=== PATIENT | male | born 1970 | race Caucasian/White ===

== ENCOUNTER 2016-10-05 19:18 | Emergency (ER) | payer MEDICAID ==
[~2016-10-05] VITALS: Ht 185.4 cm; Wt 70.8 kg
[~2016-10-05 19:18] MED LIST: ABILIFY10 MG; AMOXIL500 MG PO; BENZONATATE100 M1 PO; CHEWABLE ASPIRI81 MG PO; CIPRO 500MG TA500 MG PO; DOXY 100100 MG IV; INHALER; KEFLEX 500MG.500 MG PO; LORTAB 5/500 501 TAB PO; MEDROL 4MG. DOSE4 MG PO; MOBIC7.5 MG PO; MOTRIN600 MG PO; NAPROXEN; NAPROXEN SODIU500 MG PO; NITROLINGU0.4 MG/ACT SL; NOMEDS *; NORCO 325 MG-51 TAB PO; PEPCID40 MG PO; PHENERGAN 25MG.25 M1 PO; PREDNISONE 20MG20 MG PO; PREDNISONE50 MG PO; PROPRANOLOL HCL20 MG PO; PROPRANOLOL10 MG PO; SEPTRA DS 800 M1 TAB PO; SKELAXIN 800MG800 MG PO; TESSALON PERLE100 M1 PO; TESSALON PERLE100 MG PO; VIBRAMYCIN 100100 MG PO; VOLTAREN75 MG PO; ZANTAC 150150 MG PO; ZITHROMAX Z PA250 MG PO
[2016-10-05] MEDS ORDERED: PROPRANOLOL HCL20 MG PO (19:25)
--- NOTE | 2016-10-05 19:50 | Emergency Room Report ---
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 HX CHRONIC BACK PAIN. STATES HE HAS HAD 3 BEERS TODAY. 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 N Clinical Suspician of Infection? N Mental Status: 1 - Regular (Normal Baseline) Sepsis Risk:Low Sepsis Risk Have you (or family members/close friends) recently traveled outside the [place]? N If Yes, where/when: Have you had exposure to infectious disease within the past month? N TB? Other? Specify: Source patient, RN notes reviewed, RN/MD Exam Limitations no limitations Comment This is a 46-year-old male patient arriving to the emergency room requesting refills of his medications, her blood pressure and chronic low back pain. She advised that he used to be on Skelaxin years ago, as prescribed by Dr Borja, but he ran out of it. His insurance changed to [place], and his new PCP is dr. Suero, different from his current PCP, Dr Augustin. ALLERGIES Coded Allergies: codeine (05/10/15) Home Medications Reported Medications Propranolol Hcl 20 MG PO BID History Medical History General CAD? No Angina: No PR: No Hypertension? Yes Hyperlipidemia? No CHF? No DVT? No PE? No COPD? No Asthma? No Anemia? No GERD? No Gastric ulcers? No GI Bleed? No Hernia? No Thyroid Problems? No Hypothyroidism? No CVA? No Seizures? No Diabetes? No Insulin Dependent: No Insulin Pump: No Home FSBS? No Renal Insuffiency? No End Stage Renal Disease? No UTI? No Stones? No BPH? No GB Disease: No Nephritic Syndrome? No Asplenia? No Hepatitis? No Sickle Cell Disease? No Arthritis? No Migraines? No Cataracts? No Glaucoma? No MRSA? No HIV? No TB? No Anxiety? No Depression? No Cancer? No More? Yes Additional hx: CHRONIC BACK PAIN Immunization Hx DT/Tetanus 01/21/07 Surgical Hx Previous Surgery?Y EAR SURGERIES TONSILLECTOMY INGUINAL HERNIA REPAIR TEETH EXTRACTION Family History Family Hx CAD Yes Social History Smoking Hx Smoker: Current Every Day Smoker Tobacco: Yes Type Cigarettes Packs/day < 1 Pack Alcohol Alcohol: Yes Review of Systems All Other Systems Reviewed and Negative Musculoskeletal back pain Physical Exam Vital Signs Vital Signs Date Time Temp Pulse Resp B/P Pulse O2 O2 Flow FiO2 Ox Delivery Rate 10/05 1954 98.1 79 20 122/79 97 10/06 1919 98.1 87 20 136/95 97 General Appearance normal appearance, WD/WN, no apparent distress, +++ alcohol odor in his breath Respiratory Status Yes: trachea midline, chest symmetrical, non tender chest. No: respiratory distress. Lung Sounds bilateral: normal breath sounds, lungs clear. 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 No Departure Departure Time of Disposition 1956 Disposition DC Home or Self Care(routine) Clinical Impression Primary Impression: Chronic low back pain Secondary Impressions: Hypertension Qualifiers: Hypertension type: other secondary hypertension Qualified Code: I15.8 - Other secondary hypertension Condition STABLE Referrals Pio GARRISON,A.C. Patient Instructions DI for Chronic Pain -- Adult, High Blood Pressure ( Hypertension) (Alternative Therapy) Additional Instructions Please follow up with PCP in 2-3 days for refills. Discharge Counseling Counseled pt/family regarding diagnosis, test results, medications/RX, home care, follow up needs, alcohol counseling,> 3min Comment Please follow up with PCP in 2-3 days for refills. Prescriptions Current Visit Scripts Metaxalone (Skelaxin 800MG Tab) 800 MG PO TIDP PRN pain #30 TAB Propranolol Hcl (Propranolol Hydrochloride) 20 MG PO BID #20 TAB ED Critical Care Critical Care No at 2000
--- NOTE | 2016-10-05 19:50 | Emergency Room Report ---
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 HX CHRONIC BACK PAIN. STATES HE HAS HAD 3 BEERS TODAY. 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 N Clinical Suspician of Infection? N Mental Status: 1 - Regular (Normal Baseline) Sepsis Risk:Low Sepsis Risk Have you (or family members/close friends) recently traveled outside the [place]? N If Yes, where/when: Have you had exposure to infectious disease within the past month? N TB? Other? Specify: Source patient, RN notes reviewed, RN/MD Exam Limitations no limitations Comment This is a 46-year-old male patient arriving to the emergency room requesting refills of his medications, her blood pressure and chronic low back pain. She advised that he used to be on Skelaxin years ago, as prescribed by Dr Borja, but he ran out of it. His insurance changed to [employer], and his new PCP is dr. Suero, different from his current PCP, Dr Augustin. ALLERGIES Coded Allergies: codeine (05/10/15) Home Medications Reported Medications Propranolol Hcl 20 MG PO BID History Medical History General CAD? No Angina: No [place]: No Hypertension? Yes Hyperlipidemia? No CHF? No DVT? No PE? No COPD? No Asthma? No Anemia? No GERD? No Gastric ulcers? No GI Bleed? No Hernia? No Thyroid Problems? No Hypothyroidism? No CVA? No Seizures? No Diabetes? No Insulin Dependent: No Insulin Pump: No Home FSBS? No Renal Insuffiency? No End Stage Renal Disease? No UTI? No Stones? No BPH? No GB Disease: No Nephritic Syndrome? No Asplenia? No Hepatitis? No Sickle Cell Disease? No Arthritis? No Migraines? No Cataracts? No Glaucoma? No MRSA? No HIV? No TB? No Anxiety? No Depression? No Cancer? No More? Yes Additional hx: CHRONIC BACK PAIN Immunization Hx DT/Tetanus 01/21/07 Surgical Hx Previous Surgery?Y EAR SURGERIES TONSILLECTOMY INGUINAL HERNIA REPAIR TEETH EXTRACTION Family History Family Hx CAD Yes Social History Smoking Hx Smoker: Current Every Day Smoker Tobacco: Yes Type Cigarettes Packs/day < 1 Pack Alcohol Alcohol: Yes Review of Systems All Other Systems Reviewed and Negative Musculoskeletal back pain Physical Exam Vital Signs Vital Signs Date Time Temp Pulse Resp B/P Pulse O2 O2 Flow FiO2 Ox Delivery Rate 10/05 1954 98.1 79 20 122/79 97 10/06 1919 98.1 87 20 136/95 97 General Appearance normal appearance, WD/WN, no apparent distress, +++ alcohol odor in his breath Respiratory Status Yes: trachea midline, chest symmetrical, non tender chest. No: respiratory distress. Lung Sounds bilateral: normal breath sounds, lungs clear. 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 No Departure Departure Time of Disposition 1956 Disposition [place] Home or Self Care(routine) Clinical Impression Primary Impression: Chronic low back pain Secondary Impressions: Hypertension Qualifiers: Hypertension type: other secondary hypertension Qualified Code: I15.8 - Other secondary hypertension Condition STABLE Referrals Pio GARRISON,A.C. Patient Instructions DI for Chronic Pain -- Adult, High Blood Pressure ( Hypertension) (Alternative Therapy) Additional Instructions Please follow up with PCP in 2-3 days for refills. Discharge Counseling Counseled pt/family regarding diagnosis, test results, medications/RX, home care, follow up needs, alcohol counseling,> 3min Comment Please follow up with PCP in 2-3 days for refills. Prescriptions Current Visit Scripts Metaxalone (Skelaxin 800MG Tab) 800 MG PO TIDP PRN pain #30 TAB Propranolol Hcl (Propranolol Hydrochloride) 20 MG PO BID #20 TAB ED Critical Care Critical Care No at 2000
[2016-10-05] MEDS ORDERED: SKELAXIN 800MG800 MG PO (20:00)
[2016-10-05] MEDS ORDERED: PROPRANOLOL HYD20 MG PO (20:01)
[2016-10-05 20:12] VITALS: BP 123/91
== END 2016-10-05 20:14 | disposition home or self-care (01) ==
LOC: ER 19:18
DX: M54.5 Low back pain (principal); I15.8 Other secondary hypertension; F10.10 Alcohol abuse, uncomplicated; Z72.0 Tobacco use

== ENCOUNTER → 2016-12-09 | Emergency (ER) | payer MEDICAID ==
[~2016-12-09] VITALS: Ht 185.4 cm; Wt 63.5 kg
== END ==
LOC: ER 18:01
DX: Z53.29 Procedure and treatment not carried out because of patient's decision for other reasons (principal)